=== PATIENT | male | born 1975 | race Caucasian/White ===

== ENCOUNTER 2018-03-11 00:11 | Inpatient (IN) ==
[2018-03-11] MEDS ORDERED: *HR* HYDROmorphone (PF) 1 MG/ML SYRINGE IVP ONE ×2 (00:19→01:47)
[2018-03-11] MEDS ORDERED: *HR* FentaNYL (PF) 100 MCG/2 ML VIAL IVP ONE (00:20)
[2018-03-11] MEDS ORDERED: *HR* Midazolam HCl 2 MG/2 ML VIAL IVP ONE (00:21)
--- NOTE | 2018-03-11 00:27 | Emergency Department Note ---
Disposition Clinical Impression: Dislocation of left ankle joint Qualifiers: Encounter type: initial encounter Qualified Code(s): S93.05XA - Dislocation of left ankle joint, initial encounter Closed trimalleolar fracture of left ankle Qualifiers: Encounter type: initial encounter Qualified Code(s): S82.852A - Displaced trimalleolar fracture of left lower leg, initial encounter for closed fracture Disposition: Admitted As Inpatient Condition: Good Time of Disposition: 02:00 Lower Extremity Injury HPI - General Chief Complaint: ED Extremity Injury, Lower Stated Complaint: broke left leg Time Seen by Provider: 03/11/18 00:19 Source: family Mode of arrival: wheelchair Limitations: physical limitation Nursing Notes Reviewed: Yes Vital Signs Reviewed: Yes - History of Present Illness HPI Narrative: 42-year-old male presents for evaluation of a deformity to left ankle. The patient states he was outdoors "wrestling with my older sons" when he fell and s ustained an injury to the left ankle. He states he slipped on the wet grass and felt something "pop" in his left ankle He denies any other injuries at this time. 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 Review of Systems: As Per HPI Constitutional: Denies: fever, chills, weakness, weight change Eyes: Denies: eye pain, eye discharge, vision change ENT ED: Denies: ear pain, throat pain, dental pain, hearing loss, epistaxis, congestion, dysphagia Cardiovascular: Denies: chest pain, palpitations, dyspnea on exertion, edema, syncope Respiratory: Denies: cough, dyspnea, wheezes, hemoptysis, stridor Gastrointestinal: Denies: abdominal pain, nausea, vomiting, diarrhea, constipation, hematemesis, melena, hematochezia Genitourinary: Denies: urgency, dysuria, frequency, hematuria Musculoskeletal: Reports: as per HPI, arthralgia (Left ankle injury). Denies: back pain, neck pain, myalgia Integumentary: Denies: rash, abrasion, lesions Neurological: Denies: headache, weakness, numbness, paresthesias, confusion, abn ormal gait, vertigo Psychiatric: Denies: anxiety, depression, suicidal thoughts, homicidal thoughts, auditory hallucinations, visual hallucinations Endocrine: Denies: fatigue Hematological/Lymphatic: Denies: easy bleeding, easy bruising Allergic/Immunologic: Denies: facial swelling, urticaria Past Medical History - Past Medical History Attestation: Yes The following information was validated with the patient. Source: patient, nursing notes reviewed Medical history: Reports: hyperlipidemia, hypertension Psychiatric history: Reports: no psych history - Social History Smoking Status: Never smoker Smokeless Tobacco Status: No Alcohol use: Reports: occasionally Drug use: Reports: none Physical Exam - General Limitations: physical limitation General appearance: alert, anxious, in distress - Head Head exam: atraumatic, normocephalic, normal inspection - Eye Eye exam: Present: normal appearance, PERRL, EOMI - ENT ENT exam: mucous membranes moist - Neck Neck exam: Present: normal inspection, full ROM, trachea midline - Chest Chest inspection: Present: normal inspection, symmetric chest wall rise - Expanded Lower Extremity Exam Upper leg exam: Present: normal inspection, full ROM Knee exam: Present: normal inspection, full ROM Lower leg exam: Present: ecchymosis (Over the medial malleolus of the left ankle), other (Tenting of the skin over the medial malleolus) Ankle exam: Present: dislocation (Left ankle appears dislocated rotated laterally to 90 degrees) Neurovascular/Tendon exam: Present: normal capillary refill (Capillary refill sluggish at 4-5 seconds), pallor, other (One plus dorsalis pedis pulse, left foot) Gait: unable to bear weight - Neurological Exam Neurological exam: Present: alert, oriented X3 - Psychiatric Psychiatric exam: Present: normal affect, normal mood - Skin Skin exam: Present: warm, dry, intact, normal color Course Course Narrative: Written consent was obtained and a closed reduction performed by Dr. Poe under the direct guidance of Dr. Oconnor, ED attending. Please see Dr. Poe's proc edural note for details. Status post reduction, there is 2+ dorsalis pedis pulses and brisk capillary refill. The patient has patient of the foot and toes status post reduction. Postreduction films have been ordered. Short leg posterior splint with stirrup strap applied by the ED automation technician. Ne urovascular status intact status post splinting. Postreduction films show a tri-malleolar fracture of the left ankle. I discussed this patient's case with Dr. Diego, orthopedist station installer and repairer. As the pat ient has 2+ DP pulses and good capillary refill as well as sensation of the left foot and toes, he agrees that the patient is suitable for discharge home with follow-up as an outpatient. Dr. Diego states that the patient can be seen in the office at 8:00 Tuesday morning. I discussed this plan with the patient. The patient states concerns because he lives 2 hours away. [place] bike race. He states that he has his truck is [place] as well as all of his equipment at the campground. He asks if he can follow-up with his orthopedist in [place]. I stated that this would be an appropriate option as long as he can be seen on urgent basis. He has been instructed that if any delays arise in obtaining orthopedist follow-up closer to home, that he should contact the bone and joint Center here at [place] to schedule for follow- up, as everything has already been arranged. - Reevaluation(s) Reevaluation #1: I was informed by the patient's nurse that the patient is now requesting potential admission to the hospitalist service for pain control pending orthopedic evaluation. His pain has not been controlled with the use of IV Dilaudid up to this point. Time: 03:45 Reevaluation #2: I spoke with Dr. Carver, admitting hospitalist. Dr. Carver accepts the p atient for admission to the hospitalist care with orthopedic evaluation but does request the initiation of a patient-controlled analgesic pump. At this time, a Dilaudid PRICE ANALYST has been ordered. Time: 04:09 Reevaluation #3: The patient states significant improvement in pain after the administration of a 2 mg IV push of Dilaudid. Time: 04:39 Vital Signs Temperature 97.4 F L 03/11/18 00:19 Pulse Rate 88 03/11/18 00:19 Respiratory Rate 22 03/11/18 00:19 Blood Pressure 137/72 03/11/18 00:19 O2 Sat by Pulse Oximetry 100 03/11/18 00:19 Temperature 97.4 F L 03/11/18 00:19 Pulse Rate 91 03/11/18 02:20 Respiratory Rate 20 03/11/18 02:20 Blood Pressure 129/87 03/11/18 02:20 O2 Sat by Pulse Oximetry 99 03/11/18 02:20 Oxygen Delivery Oxygen Delivery Room Air Extremity Injury, Lower - Medical Records Medical records reviewed: Yes I reviewed the patient's medical records. - Lab Data Result diagrams: 03/11/18 04:28 03/11/18 04:28 - Radiology Data Radiology results reviewed: Yes I reviewed the patient's radiology results. Ankle X-Ray 03/11/18 00:19 IMPRESSION: Acute traumatic displaced trimalleolar fracture of the left ankle as described above with posterior dislocation of the talus with respect to the distal tibia. No acute fracture of the proximal tibia or fibula. Evidence of prior ACL graft reconstruction of the left knee. D/ / Isaiah Armendariz MD / Isaiah Armendariz MD Interpreting Provider: Isaiah Armendariz MD Tibia/Fibula X-Ray 03/11/18 00:41
--- NOTE | 2018-03-11 00:43 | Emergency Department Note ---
Disposition Clinical Impression: Closed left ankle fracture Qualifiers: Encounter type: initial encounter Qualified Code(s): S82.892A - Other fracture of left lower leg, initial encounter for closed fracture Dislocation of left ankle joint Qualifiers: Encounter type: initial encounter Qualified Code(s): S93.05XA - Dislocation of left ankle joint, initial encounter Disposition: Home, Self-Care Condition: Good Forms: ED Satisfaction Letter Time of Disposition: 00:48 General Adult HPI - General Chief complaint: ED Extremity Injury, Lower Stated complaint: broke left leg Time Seen by Provider: 03/11/18 00:19 Source: family Mode of arrival: wheelchair Limitations: physical limitation - History of Present Illness Pain Scale: 10 - Related Data Allergies Allergy/AdvReac Type Severity Reaction Status Date / Time Sulfa (Sulfonamide Allergy Rash Verified 03/11/18 00:18 Antibiotics) Constitutional: Denies: fever, chills, weakness, weight change Eyes: Denies: eye pain, eye discharge, vision change ENT ED: Denies: ear pain, throat pain, dental pain, hearing loss, epistaxis, congestion, dysphagia Cardiovascular: Denies: chest pain, palpitations, dyspnea on exertion, edema, syncope Respiratory: Denies: cough, dyspnea, wheezes, hemoptysis, stridor Gastrointestinal: Denies: abdominal pain, nausea, vomiting, diarrhea, constipation, hematemesis, melena, hematochezia Genitourinary: Denies: urgency, dysuria, frequency, hematuria Musculoskeletal: Reports: as per HPI, arthralgia (Left ankle injury). Denies: back pain, neck pain, myalgia Integumentary: Denies: rash, abrasion, lesions Neurological: Denies: headache, weakness, numbness, paresthesias, confusion, abnormal gait, vertigo Psychiatric: Denies: anxiety, depression, suicidal thoughts, homicidal thoughts, auditory hallucinations, visual hallucinations Endocrine: Denies: fatigue Hematological/Lymphatic: Denies: easy bleeding, easy bruising Allergic/Immunologic: Denies: facial swelling, urticaria Past Medical History - Past Medical History Medical history: Reports: hyperlipidemia, hypertension Psychiatric history: Reports: no psych history - Social History Smoking Status: Never smoker Smokeless Tobacco Status: No Alcohol use: Reports: occasionally Drug use: Reports: none Physical Exam - General Limitations: physical limitation General appearance: alert, anxious, in distress Course Course Narrative: NOTE OPENED FOR PROCEDURE DOCUMENTATION ONLY, GIANNA GANT WAS PRIMARY PHSYICIAN ON CASE. PLEASE SEE HIS NOTE FOR ADDITIONAL DETAILS. Physical exam showed left ankle dislocation with +1 over 4 posterior dorsalis pedis pulse, cool forefoot. No other pain on proximal tib/fib. Left ankle was relocated using fentanyl and Versed. Patient tolerated the procedure well. Dorsalis pedis pulse was 2 over 4 after procedure. Cap refill less than 3 seconds on toes, sensation intact over entire left foot, motor intact left ankle. Repeat x-ray of the left ankle shows reduction with distal fibular fracture. Currently waiting official read. Imaging will followed up by yue Painting and sugar tong splint ordered. Vital Signs Temperature 97.4 F L 03/11/18 00:19 Pulse Rate 88 03/11/18 00:19 Respiratory Rate 22 03/11/18 00:19 Blood Pressure 137/72 03/11/18 00:19 O2 Sat by Pulse Oximetry 100 03/11/18 00:19 Temperature 97.4 F L 03/11/18 00:19 Pulse Rate 88 03/11/18 00:19 Respiratory Rate 22 03/11/18 00:19 Blood Pressure 137/72 03/11/18 00:19 O2 Sat by Pulse Oximetry 100 03/11/18 00:19 Oxygen Delivery Oxygen Delivery Room Air Procedures - Orthopedic Joint Reduction Joint #1 Consent Obtained: written consent Time Out Performed: Yes Side: left Joint Reduction Location: ankle ASA Classification: CLASS I-Normal, healthy patient Analgesia: other (fentanyl 100mg and versed 2mg) Technique used: traction/counter-traction Post-reduction neuro exam: intact Post-reduction vascular: intact Post Reduction X-Ray Obtained: Yes Post Reduction X-Ray Results: reduced Splint Applied: Yes Patient Tolerated Procedure: well, no complications Medical Decision Making - [facility] Narrative Medical decision making narrative: NOTE OPENED FOR PROCEDURE DOCUMENTATION ONLY, GIANNA GANT WAS PRIMARY PHSYICIAN ON CASE. PLEASE SEE HIS NOTE FOR ADDITIONAL DETAILS. Physical exam showed left ankle dislocation with +1 over 4 posterior dorsalis pedis pulse, cool forefoot. No other pain on proximal tib/fib. Left ankle was relocated using fentanyl and Versed. Patient tolerated the procedure well. Dorsalis pedis pulse was 2 over 4 after procedure. Cap refill less than 3 seconds on toes, sensation intact over entire left foot, motor intact left ankle. Repeat x-ray of the left ankle shows reduction with distal fibular fracture. Currently waiting official read. Imaging will followed up by yue Painting and sugar tong splint ordered.
--- NOTE | 2018-03-11 00:52 | Emergency Department Note ---
Disposition Clinical Impression: Closed trimalleolar fracture of left ankle Dislocation of left ankle joint Qualifiers: Encounter type: initial encounter Qualified Code(s): S93.05XA - Dislocation of left ankle joint, initial encounter Disposition: Home, Self-Care Condition: Good Instructions: Ankle Fracture (ED), Crutch Instructions (ED), Splint Care (ED) Reasons to Return/Additional Instructions: Non weight-bearing status by use of the crutches supplied to you in the Emergency Department. Maintain use of the nle wrap provided to you. Ice should be applied, 20minutes on, 20minutes off at a time. Take your medications as prescribed. Follow up with the contract negotiation specialist as we have discussed. An appointment has been scheduled for U for Tuesday at 8:00. Feel free to try to obtain orthopedic follow-up at a facility closer to your residence, however she did experience any difficulty, please contact the bone and joint office here at [place] for follow-up. You are injury will require urgent orthopedic evaluation, and ultimately surgical fixation. Return for any new or worsening symptoms including but not limited to: worsening pain, worsening swelling, numbness or tingling/discoloration of your foot or toes, fever, chills, nausea, vomiting, or any other concerns you may have about your own personal well-being. Prescriptions: Oxycodone HCl/Acetaminophen [Percocet 5-325 mg Tablet] 1 each PO Q6HR PRN 3 Days #15 tablet PRN Reason: Pain Referrals: David Diego MD [Partnered Physician] - 03/13/18 8:00 am NONE,PCP [Primary Care Provider] - Forms: ED Satisfaction Letter General Adult HPI - General Chief complaint: ED Extremity Injury, Lower Stated complaint: broke left leg Time Seen by Provider: 03/11/18 00:19 Source: family Mode of arrival: wheelchair Limitations: physical limitation Nursing Notes Reviewed: Yes Vital Signs Reviewed: Yes - History of Present Illness Pain Scale: 10 - Related Data Previous Rx's Medication Instructions Recorded Oxycodone HCl/Acetaminophen 1 each PO Q6HR PRN 3 Days #15 03/11/18 [Percocet 5-325 mg Tablet] tablet Allergies Allergy/AdvReac Type Severity Reaction Status Date / Time Sulfa (Sulfonamide Allergy Rash Verified 03/11/18 00:18 Antibiotics) Constitutional: Denies: fever, chills, weakness, weight change Eyes: Denies: eye pain, eye discharge, vision change ENT ED: Denies: ear pain, throat pain, dental pain, hearing loss, epistaxis, congestion, dysphagia Cardiovascular: Denies: chest pain, palpitations, dyspnea on exertion, edema, syncope Respiratory: Denies: cough, dyspnea, wheezes, hemoptysis, stridor Gastrointestinal: Denies: abdominal pain, nausea, vomiting, diarrhea, constipation, hematemesis, melena, hematochezia Genitourinary: Denies: urgency, dysuria, frequency, hematuria Musculoskeletal: Reports: as per HPI, arthralgia (Left ankle injury). Denies: back pain, neck pain, myalgia Integumentary: Denies: rash, abrasion, lesions Neurological: Denies: headache, weakness, numbness, paresthesias, confusion, abnormal gait, vertigo Psychiatric: Denies: anxiety, depression, suicidal thoughts, homicidal thoughts, auditory hallucinations, visual hallucinations Endocrine: Denies: fatigue Hematological/Lymphatic: Denies: easy bleeding, easy bruising Allergic/Immunologic: Denies: facial swelling, urticaria Past Medical History - Past Medical History Medical history: Reports: hyperlipidemia, hypertension Psychiatric history: Reports: no psych history - Social History Smoking Status: Never smoker Smokeless Tobacco Status: No Alcohol use: Reports: occasionally Drug use: Reports: none Physical Exam - General Limitations: physical limitation General appearance: alert, anxious, in distress Course Vital Signs Temperature 97.4 F L 03/11/18 00:19 Pulse Rate 88 03/11/18 00:19 Respiratory Rate 22 03/11/18 00:19 Blood Pressure 137/72 03/11/18 00:19 O2 Sat by Pulse Oximetry 100 03/11/18 00:19 Temperature 97.4 F L 03/11/18 00:19 Pulse Rate 91 03/11/18 02:20 Respiratory Rate 20 03/11/18 02:20 Blood Pressure 129/87 03/11/18 02:20 O2 Sat by Pulse Oximetry 99 03/11/18 02:20 Oxygen Delivery Oxygen Delivery Room Air Attestation Statement - Attestation Attestation: I examined this patient and my medical decision making was reviewed with the ABAD. I agree with the documented findings, disposition and treatment plan as described except to the extent set forth below. We independently had [id number] contact with the patient. Patient with obvious deformity to the left lower extremity. Informed consent was obtained. Patient was given 100 g of fentanyl and 2 of Versed. The ankle was reduced by the resident physician Dr. Leung with my direct supervision. I was present throughout the entirety of the procedure. Ankle was reduced with traction. Post x-ray films showed trimalleolar fracture. Ankle is unstable. Patient was placed in a posterior calf as well as associated stirrup. Post splint placement evaluation was done. Patient continues to have a strong dorsalis pedis pulse with no sensation deficit. Ortho will be contacted. Patient will undergo appropriate follow-up. After stay in the emergency department the patient did receive pain medication and feels that his pain is not controlled enough to go home. On reevaluation the patient does still have soft compartments with dorsalis pedis pulse present and sensation intact. Patient will undergo admission for pain control as well as ortho consult.
[2018-03-11] MEDS ORDERED: *HR* HYDROmorphone 2 MG/ML SYRINGE IVP ONE (03:37)
[2018-03-11] MEDS ORDERED: *HR* HYDROmorphone 20 MG/20 ML PCA IVC PRN ×2 (04:05→06:13)
[2018-03-11] MEDS ORDERED: Ondansetron 4 MG/2 ML VIAL IVP ONE (04:25)
[2018-03-11 04:45] LABS: Basophils # 0.1 K/mcL (0.0-0.2); Basophils % 0.3 %; Eosinophils % 0.1 %; Hematocrit 41.5 % (37.5-50.1); Hemoglobin 15.2 g/dL (12.9-16.9); Immature Granulocytes % 0.6 % (0-4); Lymphocytes # 1.7 K/mcL (0.6-4.6); Lymphocytes % 10.9 %; Mean Corpuscular HGB Conc 36.6 g/dL (31.6-35.5); Mean Corpuscular Hemoglobin 32.3 pg (28.0-33.3); Mean Corpuscular Volume 88.3 fL (83.0-100.0); Monocytes # 0.6 K/mcL (0.0-1.3); Monocytes % 4.1 %; Platelet Count 244 K/mcL (140-400); Red Cell Distribution Width 12.2 % (11.5-14.5)
[2018-03-11 04:53] LABS: INR 1.1; Prothrombin Time 12.1 Seconds (9.4-12.1)
[2018-03-11 04:56] LABS: Activated Partial Thrombo Time 29.1 Seconds (26.0-36.0)
[2018-03-11 05:03] LABS: BUN/Creatinine Ratio 14 (6-26); Blood Urea Nitrogen 12 mg/dL (6-20); Calcium 9.2 mg/dL (8.6-10.3); Carbon Dioxide 27 mEq/L (23-29); Chloride 101 mEq/L (98-107); Glucose 107 mg/dL (70-105); Osmolality,Calculated 284 (280-300); Potassium 3.6 mEq/L (3.5-5.1); Sodium 137 mEq/L (136-145); eGFR For Non-African Americans > 60 (> 60)
[2018-03-11] MEDS ORDERED: Ringers Solution, Lactated 1,000 ML IVC SCH ×2 (05:45→14:48)
[2018-03-11] MEDS ORDERED: Naloxone 0.4 MG/ML INJ IVP PRN ×3 (06:11→14:48)
[2018-03-11] MEDS ORDERED: Ondansetron 4 MG/2 ML VIAL IVP PRN ×2 (06:14→14:48)
[2018-03-11] MEDS ORDERED: *HR* Promethazine 25 MG/ML VIAL IVP PRN ×2 (08:15→14:48)
[2018-03-11] MEDS ORDERED: *HR* OxyCODONE Immed Rel 5 MG TABLET PO PRN ×2 (08:34→14:48)
--- NOTE | 2018-03-11 08:50 | Internal Med History&Physical ---
Date of Encounter: 03/11/18 Time of Encounter: 08:48 Internal Medicine - H&P: HPI Chief complaint: Closed trimalleolar fracture of left ankle Admitted From: Home Plans for Post Hospital Care: Home History of present illness: Mr. Temple is a 42 year old male who presents S/P fall this evening. He reports that he was playing football with his children and fell on the grass and felt something pop. On the ED was found to have a left trimalleolar ankle fracture. In the ED the fracture was reset any leg brace with stirrups was applied. He is being admitted for further consultation with podiatry with potential need for surgical intervention. Past Med Surg Social Fam HX - Past Medical History Medical history: hyperlipidemia, hypertension Psychiatric history: no psych history - Past Surgical History Additional surgical history: acl left knee - Social History Smoking Status: Never smoker Smokeless Tobacco Status: Yes Alcohol use: occasionally Drug use: none - Family History Mother Living Status: Still Living Hx Family Cardiac Disorders: Yes (htn) Internal Medicine - H&P: Meds Metoprolol [Lopressor] 100 mg PO DAILY 03/11/18 [History] Oxycodone HCl/Acetaminophen [Percocet 5-325 mg Tablet] 1 each PO Q6HR PRN 3 Days #15 tablet 03/11/18 [Rx] Simvastatin [Zocor] 10 mg PO HS 03/11/18 [History] Allergy/AdvReac Type Severity Reaction Status Date / Time Sulfa (Sulfonamide Allergy Rash Verified 03/11/18 00:18 Antibiotics) All Systems PM: A 10-system review of systems was performed and is negative for pertinent findings except as documented above in the HPI. - Cardiovascular Cardiovascular ROS IM: no chest pain, no diaphoresis, no dyspnea, no lightheadedness, no palpitations, no syncope - Respiratory Respiratory: no cough, no dyspnea, no wheezing, no excessive phlegm production - Gastrointestinal Gastrointestinal: no abdominal pain, no diarrhea, no hematemesis, no hematochezia, no melena, no nausea, no vomiting - Musculoskeletal Musculoskeletal ROS IM: as per HPI, arthralgias, limited range of motion, no numbness, no tingling - Neurological Neurological ROS: no confusion, no convulsions, no focal weakness, no numbness, no tingling, no tremor(s) - Constitutional Vitals: Temp Pulse Resp BP Pulse Ox 97.6 F 76 16 132/89 99 03/11/18 06:43 03/11/18 06:43 03/11/18 06:43 03/11/18 06:43 03/11/18 08:07 General appearance: Present: A&O X 3 Exam: . - Head Head exam: Present: atraumatic, normocephalic - Eye Eye exam: Present: PERRL - Neck Neck exam general surgery: Present: full ROM, trachea midline. Absent: lymphadenopathy - Respiratory Respiratory exam: Present: CTAB. Absent: accessory muscle use, rales, rhonchi, wheezes - Cardiovascular Cardiovascular exam: Present: RRR, +S1, +S2. Absent: diastolic murmur, gallop, rubs, systolic murmur - GI/Abdominal GI/Abdominal exam: Present: normal bowel sounds, soft, no peritoneal signs. Absent: tenderness - Extremities Exam Extremities exam: Present: normal capillary refill, tenderness, warm, radial pulses palpable and symmetrical. Absent: calf tenderness, cyanotic, full ROM, normal inspection, pedal edema - Neurological Exam Neurological exam: Absent: facial droop, speech deficit - Skin Skin exam: Present: dry, intact Internal Med - H&P Results - Labs CBC & Chem 7: 03/11/18 04:28 03/11/18 04:28 Labs: Short CBC 03/11/18 Range/Units 04:28 WBC 15.5 H (4.3-11.1) K/mcL Hgb 15.2 (12.9-16.9) g/dL Hct 41.5 (37.5-50.1) % Plt Count 244 (140-400) K/mcL Neutrophils # 13.0 H (1.6-8.9) K/mcL BMP 03/11/18 04:28 Sodium 137 Potassium 3.6 Chloride 101 Carbon Dioxide 27 BUN 12 Creatinine 0.88 Glucose 107 H Calcium 9.2 - Impressions ITS Impressions Ankle X-Ray 03/11/18 00:19 IMPRESSION: Acute traumatic displaced trimalleolar fracture of the left ankle as described above with posterior dislocation of the talus with respect to the distal tibia. No acute fracture of the proximal tibia or fibula. Evidence of prior ACL graft reconstruction of the left knee. D/ / Isaiah Armendariz MD / Isaiah Armendariz MD Interpreting Provider: Isaiah Armendariz MD Tibia/Fibula X-Ray 03/11/18 00:41 IMPRESSION: Acute traumatic displaced trimalleolar fracture of the left ankle as described above with posterior dislocation of the talus with respect to the distal tibia. No acute fracture of the proximal tibia or fibula. Evidence of prior ACL graft reconstruction of the left knee. D/ / Isaiah Armendariz MD / Iasiah Armendariz MD Interpreting Provider: Isaiah Armendariz MD Chest X-Ray 03/11/18 04:06 IMPRESSION: No acute process. D/ / Isaiah Armendariz MD / Isaiah Armendariz MD Interpreting Provider: Isaiah Armendariz MD - Assessment and plan (1) Closed trimalleolar fracture of left ankle Current Visit: Yes Status: Acute Assessment and plan: Continue with posterior splint with stirrup strap Consult podiatry Pain control with immediate release oxycodone and Toradol as needed Discontinue CRITICAL CARE TRANSPORT NURSE pump Phenergan and Zofran for nausea Heparin for DVT prophylaxis Consider DC this afternoon pending recommendations from podiatry Qualifiers: Encounter type: initial encounter Qualified Code(s): S82.852A - Displaced trimalleolar fracture of left lower leg, initial encounter for closed fracture (2) Dislocation of left ankle joint Current Visit: Yes Status: Acute Assessment and plan: As above Qualifiers: Encounter type: initial encounter Qualified Code(s): S93.05XA - Dislocation of left ankle joint, initial encounter - Time Spent With Patient Total time spent is greater than 50% in coordination of care (as documented) at patient's floor/unit and/or counseling patient: less than 15 minutes
[2018-03-11] MEDS ORDERED: Metoprolol 100 MG TABLET PO SCH (09:00)
--- NOTE | 2018-03-11 10:40 | Podiatry Consult Note ---
Date of Encounter: 03/11/18 Time of Encounter: 10:00 Assessment and Plan (1) Closed trimalleolar fracture of left ankle Current visit: Yes Status: Acute I had a thorough review with the patient regarding his injury/condition, my findings, and recommendations for treatment. We discussed the ankle fracture dislocation of the left lower extremity. We discussed his x-ray. We discussed surgery to repair the fracture sites of the left ankle. 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 he does have some tenting of the skin medially and would recommend performing the ORIF sooner rather than later. Nature of procedure, risks vs benefits, potential complications and consequences of the procedure discussed at length (including but not limited to infection, bleeding, swelling, numbness, tingling, nerve damage, loss of limb, loss of life, wound healing problems, delayed or nonhealing of bone fracture, arthritis, loss of functionality, ongoing or persistent pain, pneumonia, lack of procedure to produce desired outcome, kidney disease, liver problems, pulmonary embolism, blood clot, heart attack, reaction to implants, need for hardware removal need for further surgery etc.) no guarantees made as to the outcome of any procedure. Typical course of recovery discussed and he will be nonweightbearing for 6-8 weeks following the procedure longer and then a walking boot. All of his questions were answered and informed consent was signed. It was explained to the patient that in the future he could need surgery on the ankle for the arthritis or to remove hardware. Patient currently NPO and will be evaluated by anesthesia and brought to the operating room when okay with anesthesia. Qualifiers: Encounter type: initial encounter Qualified Code(s): S82.852A - Displaced trimalleolar fracture of left lower leg, initial encounter for closed fracture History of Present Illness HPI: Mr. Temple is a 42 year old male who got admitted from the ER with a left trimalleolar ankle fracture which the patient says happened last night when he slipped on wet grass while plying football with his kids. He said his ankle was complately dislocated to the side. He says he went to the ER and he was put in a splint. He was on a dilaudid BLOW TORCH BURNER which was discontinued this morning. His pain is now being controlled with PO pain medication. Patient says he is very uncomfortable and cannot get the pain to stop. He says he has taken sips of sprite all night. Consulted this morning for evaluation. Past Med Surg Social Fam HX - Past Medical History Medical history: hyperlipidemia, hypertension Psychiatric history: no psych history - Past Surgical History Additional surgical history: acl left knee - Social History Smoking Status: Never smoker Smokeless Tobacco Status: Yes Alcohol use: occasionally Drug use: none - Family History Mother Living Status: Still Living Hx Family Cardiac Disorders: Yes (htn) Medications and Allergies Metoprolol [Lopressor] 100 mg PO DAILY 03/11/18 [History] Oxycodone HCl/Acetaminophen [Percocet 5-325 mg Tablet] 1 each PO Q6HR PRN 3 Days #15 tablet 03/11/18 [Rx] Simvastatin [Zocor] 10 mg PO HS 03/11/18 [History] Allergy/AdvReac Type Severity Reaction Status Date / Time Sulfa (Sulfonamide Allergy Rash Verified 03/11/18 00:18 Antibiotics) All Systems Reviewed: The remainder of the systems were reviewed and are negative - Constitutional Constitutional: no fever(s) - Cardiovascular Cardiovascular: no chest pain, no dyspnea - Respiratory Respiratory: no cough, no dyspnea - Musculoskeletal Musculoskeletal: joint swelling, limited range of motion, other (left ankle pain) Physical Exam - Constitutional Vitals: Temp Pulse Resp BP Pulse Ox 97.6 F 76 16 132/89 99 03/11/18 06:43 03/11/18 06:43 03/11/18 06:43 03/11/18 06:43 03/11/18 08:07 General appearance: average body habitus, no acute distress - Respiratory Additional comments: non-labored respirations - Cardiovascular Cardiovascular exam: Present: +S1, +S2 - Ankle & Foot Exam: Well-developed and nourished male in no acute distress Capillary refill time less than 3 seconds 5 digits left foot. Left foot is warm to touch. Mild edema. No erythema. No open lesions. No skin necrosis however there is tenting of the skin medially. No fracture blisters at this time. Skin lines visible. Pain with palpation medial and lateral ankle. Did not assess range of motion secondary to injury. Patient can flex and extend digits of the left foot. Sensation intact to touch. ABD NT/ND X-ray: Displaced left trimalleolar ankle fracture Results - Labs Result Diagrams: 03/11/18 04:28 03/11/18 04:28 Labs: Abnormal lab results WBC 15.5 K/mcL (4.3-11.1) H 03/11/18 04:28 MCHC 36.6 g/dL (31.6-35.5) H 03/11/18 04:28 Neutrophils # 13.0 K/mcL (1.6-8.9) H 03/11/18 04:28 Glucose 107 mg/dL (70-105) H 03/11/18 04:28 H & H 03/11/18 Range/Units 04:28 Hgb 15.2 (12.9-16.9) g/dL Hct 41.5 (37.5-50.1) % All other labs normal. Consult Discharge Plan - Plan Referrals: NONE,PCP [Primary Care Provider] -
[2018-03-11] MEDS ORDERED: *HR* Midazolam HCl 2 MG/2 ML VIAL ONE (11:23)
[2018-03-11] MEDS ORDERED: *HR* FentaNYL (PF) 100 MCG/2 ML VIAL ONE (11:23)
[2018-03-11] MEDS ORDERED: *HR* Propofol 200 MG/20 ML VIAL IVP ONE (11:24)
[2018-03-11] MEDS ORDERED: Lidocaine -MPF 2% 2 ML VIAL ONE (11:24)
[2018-03-11] MEDS ORDERED: Dexamethasone 4 MG/ML VIAL ONE (11:24)
[2018-03-11] MEDS ORDERED: Ondansetron 4 MG/2 ML VIAL ONE (11:24)
[2018-03-11] MEDS ORDERED: Bupivacaine/EPI 1:200k 0.25%PF 30 ML VIAL ONE (11:44)
[2018-03-11] MEDS ORDERED: Ketorolac 30 MG/ML VIAL IVP SCH (12:00)
--- NOTE | 2018-03-11 12:16 | Anesthesia Evaluation PreOp ---
Date of Encounter: 03/11/18 Time of Encounter: 12:14 - Past History Planned Operation: ORIF L-trimalleolar Fx Cardiac History: HTN, Hyperlipidemia Pulmonary History: Denies Any Significant HX WEIGH BOSS History: Denies Any Significant HX Other Medical History: Denies Any Significant HX Anesthesia History: No Prior Anesthetic Complications, Past Anesthesia (L-ACL) Alcohol Use: occasionally Drug use: none Medications and Allergies Metoprolol [Lopressor] 100 mg PO DAILY 03/11/18 [History] Oxycodone HCl/Acetaminophen [Percocet 5-325 mg Tablet] 1 each PO Q6HR PRN 3 Days #15 tablet 03/11/18 [Rx] Simvastatin [Zocor] 10 mg PO HS 03/11/18 [History] Allergy/AdvReac Type Severity Reaction Status Date / Time Sulfa (Sulfonamide Allergy Rash Verified 03/11/18 00:18 Antibiotics) - Meds/Allergy Pre-op Review Medications Reviewed: Yes Allergies Reviewed: Yes Beta Blockers on Current Med List: No Anesthesia Results - Labs 03/11/18 04:28 03/11/18 04:28 Laboratory Results Laboratory Tests 03/11/18 03/11/18 04:28 04:28 PT 12.1 INR 1.1 APTT 29.1 Est GFR (Non-Af Amer) > 60 Impressions Ankle X-Ray 03/11/18 00:19 IMPRESSION: Acute traumatic displaced trimalleolar fracture of the left ankle as described above with posterior dislocation of the talus with respect to the distal tibia. No acute fracture of the proximal tibia or fibula. Evidence of prior ACL graft reconstruction of the left knee. D/ / Isaiah Armendariz MD / Isaiah Armendariz MD Interpreting Provider: Isaiah Armendariz MD Tibia/Fibula X-Ray 03/11/18 00:41 IMPRESSION: Acute traumatic displaced trimalleolar fracture of the left ankle as described above with posterior dislocation of the talus with respect to the distal tibia. No acute fracture of the proximal tibia or fibula. Evidence of prior ACL graft reconstruction of the left knee. D/ / Isaiah Armendariz MD / Isaiah Armendariz MD Interpreting Provider: Isaiah Armendariz MD Chest X-Ray 03/11/18 04:06 IMPRESSION: No acute process. D/ / Isaiah Armendariz MD / Isaiah Armendariz MD Interpreting Provider: Isaiah Armendariz MD Anesthesia Exam Vital Signs Temp Pulse Resp BP Pulse Ox 03/11/18 11:00 98.3 F 80 16 146/95 99 03/11/18 10:52 97.7 F 76 17 139/77 95 03/11/18 08:07 99 03/11/18 06:43 97.6 F 76 16 132/89 99 03/11/18 05:52 97.8 F 85 18 117/82 95 03/11/18 02:20 91 20 129/87 99 03/11/18 01:07 79 18 131/81 99 03/11/18 00:19 97.4 F L 88 22 137/72 100 Intake and Output 03/10/18 03/11/18 03/11/18 23:59 07:59 15:59 Other: Weight 79.4 kg Patient Weight 03/11/18 23:59 Weight 79.4 kg Height: 5'8" Weight: 175# BMI = 27 NPO (# of Hours): MNOc Pain Scale Used: Numeric (1 - 10) - HEENT Pupil (Motor): Pupils equal, EOMI Mallampati: II Teeth: Normal Oral Opening: Greater than 3 - WEIGH BOSS LOC: Oriented WEIGH BOSS Motor: Normal RUE, Normal LUE, Normal RLE, Normal LLE, Normal Face WEIGH BOSS Sensory: Normal: RUE, LUE, RLE, LLE, Face - Cardiac Rhythm: Regular Murmur: None - Pulmonary Breath Sounds: bilateral Clear Respiratory Effort: Symmetrical Anesthesia Assess/Plan ASA Score: 2 Modified Derik Scale for Level of Consciousness: Cooperative, oriented, and tranquil Anesthetic Plan: General, Regional Monitoring Plan: Standard Monitors Recovery Plan: PACU Anes Supervising Prov Stmt: Pt seen/evaluated, R&B Discussed, questions answered and consent obtained. Alex Menchaca MD
[2018-03-11] MEDS ORDERED: Tetracaine/PF 20 MG/2 ML AMPUL ONE (12:26)
[2018-03-11] MEDS ORDERED: ROPIVACAINE HCL/PF 0.5% 30 ML VIAL ONE (12:26)
[2018-03-11] MEDS ORDERED: Bupivacaine/Clonidine Syringe 1 EACH SYRINGE ONE (12:26)
[2018-03-11] MEDS ORDERED: Scopolamine Patch 1.5 MG PATCH.TD72 ONE (12:40)
[2018-03-11] MEDS ORDERED: Famotidine 20 MG/2 ML VIAL ONE (12:41)
[2018-03-11] MEDS ORDERED: Acetaminophen IV 1,000 MG/100 ML INFUS..BTL ONE (12:41)
--- NOTE | 2018-03-11 12:46 | Anesthesia Procedures ---
Date of Encounter: 03/11/18 Time of Encounter: 12:44 Procedures: Anesthesia - Nerve Block Procedure Date: 03/11/18 Time: 12:45 Surgical Procedure: Left Ankle ORIF Checklist: Correct Patient Identifier, Correct procedure, History checked Correct side: Left Blood Thinner: No Monitor Applied: EKG, BP, Pulse Oximetry Supplemental Oxygen via Nasal Cannula (L/min): 2 Sedation: Versed (mg): 2 Sedation: Fentanyl (mcg): 50 Indication: Post Op Analgesia (per dr. Saundesr) Pre-op Neuro Deficits: No Block Type: Popliteal, Other (Saphenous Field Block) Catheter placed: No Sterile Technique: Yes Ultrasound used: Yes Anatomy identified: Yes Visual spread of Local: Yes Neuro Stimulation: No Blood on Needle Aspiration: No Smooth Injection of Local: Yes Pain with Injection of Local: No Prep: Chlorhexadine Needle: 21 x 100 mm Stimuplex Local: 0.25% Bupivicaine w/Clonidine 20 mcg/cc (20cc with 4mg decadron for Saphenous), Tetracaine, Ropivacaine (30cc 0.5% with 8mg decadron and 20mg tetracaine for pop) Volume (cc): 30, 20 Number of Attempts: 1 Complications: None/effective block Vitals: Vital Signs/O2 Sat/Glucose, Most Recent Temp Pulse Resp BP Pulse Ox 98.3 F 82 16 138/88 96 03/11/18 11:00 03/11/18 12:33 03/11/18 12:33 03/11/18 12:33 03/11/18 12:33 Comments: [facility]
--- NOTE | 2018-03-11 14:10 | Operative Note ---
Date of procedure: 03/11/18 Pre-op diagnosis: left trimalleolar ankle fracture Post-op diagnosis: same Procedure: ORIF left trimalleolar ankle fracture ORIF syndesmosis Implants: Carmel plate with screws, 3.0mm partially threaded cannulated screws x 2 Complications: none Anesthesia: GETA, other (popliteal block by anesthesia) Co-Surgeon: Ryan Saunders Was there an railways assistant present: No Estimated blood loss (cc): 25 Tourniquet Time (Minutes): 44 Specimen: none Condition: stable Disposition: PACU Procedure in Detail: Indications: 42-year-old male sustaining trimalleolar left ankle fracture di slocation yesterday admitted overnight in the emergency room for pain control. Patient was found to have tenting of the medial skin without necrosis upon examination and was brought to the operating room for ORIF of the left trimalleolar ankle fracture after having the nature of the procedure, risks versus benefits potential complications consequences of surgery and his condition discussed at length. It was explained and he understood that he will have arthritis of his ankle due to the nature of his injury. All his questions have been answered and informed consent was signed. Patient was given a popliteal block by anesthesia brought to the operating room placed on operating room table in the supine position. The left foot was scrubbed prepped and draped in the usual sterile fashion. A thigh tourniquet had been applied and was inflated to 300 mmHg and the following procedure began. ORIF of left trimalleolar ankle fracture. Attention was directed to the lateral aspect of the patient's left ankle were #15 blade was used to make a skin incision approximately 7 cm in length. Skin incision was deepened through blunt dissection all traversing veins were divided and ligated using the Bovie or Vicryl ties as deemed appropriate. Care was taken to avoid neurovascular tendon structures. The periosteal layer was incised and freed from the fibula exposing the fracture zone of the lateral malleolus which was obliquely oriented. Hematoma was evacuated from the fracture zone. The ankle was held in a reduced position with the talus under the tibia and well aligned and the ankle mortise. C-arm was utilized to confirm reduction of the talus and the ankle mortise and that the fibula was out to length. Reduction clamps were used to stabilize the fracture zone and a 3.5 jose cortical lag screw was thrown using standard technique. Excellent compression was noted across the fracture zone clinically. Using standard technique a Jose locking plate was applied using 3.5 mm lo cking and nonlocking screws to the lateral aspect of the fibula bridging the fracture zone. The fibula was out to length. The site was flushed with saline irrigation. Stability of the fracture zone was assessed and the fracture zone had good apposition and the ankle was noted to be in good position and alignment on the C-arm. Attention was then directed medially where a #15 blade was used to make a skin incision over the medial malleolus. Skin incision was deepened through blunt dissection care was taken to avoid neurovascular tendinous structures. Hematoma was evacuated from the fracture zone and periosteum removed from the fracture zone. The medial malleolar fracture fragment was then reduced with a reduction clamp and pinned temporarily. C-arm was utilized to confirm position and alignment of the k-wires traversing the fracture zone. Fracture was noted to be reduced and two 3.0mm partially threaded cannulated jose screws were thrown across the fracture zone. No increase in medial clear space was noted and good tib-fib overlap was present. Reduction of the fracture zone was noted. Attention was then directed laterally where the cotton hook test was performed and the syndesmosis was felt to be unstable. The syndesmosis was held in a reduced position and a Jose 3.5mm non-locking screw was thrown through the plate to stabilize the syndesmosis. C-arm was utilitzed to confirm reduction and no increase in the medial clear space and good tib-fib overlap. The posterior malleolar fragment was small and the decision was made not to fixate the fragment. C-arm was utilized to confirm position and alignment of the fracture zones. There was no increased and medial clear space there was good tib-fib overlap and the talus was aligned in the ankle mortise and the fibula was out to length. Periosteal layers were closed with 2-0 Vicryl subcutaneous tissues were closed with 2-0 Vicryl and the skin was reapproximated with susanne laterally. Postoperative bandaging included Xeroform, 4 x 4 gauze, Kerlix and an adequately padded posterior splint. The patient tolerated the anesthesia and the procedure well and was escorted to the recovery room with vital signs stable and vascular status intact to the left foot noted by instant capillary refill time to all digits of the left foot. Cryocuff applied. Elevation. Strict instructions given for non-weightbearing to the left lower extremity. Patient will return to the floor where he will continue 2 doses of Ancef, pain control and monitoring with potential discharge tomorrow morning. Follow up in 1 week.
--- NOTE | 2018-03-11 16:09 | Anesthesia Evaluation Post Op ---
Date of Encounter: 03/11/18 Time of Encounter: 14:40 - Vital Signs Vital Signs: Vital Signs/O2 Sat/Glucose, Most Current Temp Pulse Resp BP Pulse Ox 03/11/18 14:35 99.7 F H 87 16 115/89 96 03/11/18 14:25 88 16 126/82 96 03/11/18 14:15 91 16 125/84 92 03/11/18 14:05 99.4 F 98 16 136/97 100 03/11/18 12:33 82 16 138/88 96 - Lungs Lungs: Clear Ascult./Percussion - Airway Airway: Non-obstructed - Cardiovascular Regular Rate - Mental Status Mental Status: Alert & Oriented, Answers Appropriately - Pain Pain Scale: 2 Pain Scale used: Numeric (1 - 10) - Nausea Vomiting Nausea Vomiting: Not Present - Hydration Hydration: Tolerates oral liquids - Discharge PostOp Status: Transfer Patient to floor Anes Supervising Prov Stmt: Pt seen/evaluated, VSS And has met criteria for discharge to floor. - MD Bernarda
[2018-03-11] MEDS ORDERED: *HR* Heparin 5,000 UNIT/ML VIAL SQ SCH (18:00)
[2018-03-11] MEDS: Ketorolac 30 MG/ML VIAL IVP SCH (18:02)
[2018-03-11] MEDS: *HR* Heparin 5,000 UNIT/ML VIAL SQ SCH (18:02)
[2018-03-12] MEDS: Ketorolac 30 MG/ML VIAL IVP SCH ×3 (00:21→12:36)
[2018-03-12] MEDS: *HR* Heparin 5,000 UNIT/ML VIAL SQ SCH (05:35)
[2018-03-12 08:08] LABS: Basophils % 0.1 %; Hematocrit 36.5 % (37.5-50.1); Immature Granulocytes % 0.6 % (0-4); Lymphocytes # 1.2 K/mcL (0.6-4.6); Lymphocytes % 8.7 %; Mean Corpuscular HGB Conc 35.9 g/dL (31.6-35.5); Mean Corpuscular Hemoglobin 32.4 pg (28.0-33.3); Mean Corpuscular Volume 90.3 fL (83.0-100.0); Mean Platelet Volume 10.4 fL (9.4-12.4); Monocytes # 1.1 K/mcL (0.0-1.3); Monocytes % 7.9 %; Neutrophils # 11.3 K/mcL (1.6-8.9); Platelet Count 214 K/mcL (140-400); Red Blood Count 4.04 M/mcL (4.19-5.50); Red Cell Distribution Width 12.4 % (11.5-14.5); Segmented Neutrophils % 82.7 %
[2018-03-12 08:16] LABS: Hemoglobin 13.1 g/dL (12.9-16.9)
[2018-03-12 08:42] LABS: BUN/Creatinine Ratio 20 (6-26); Blood Urea Nitrogen 17 mg/dL (6-20); Carbon Dioxide 27 mEq/L (23-29); Chloride 102 mEq/L (98-107); Glucose 118 mg/dL (70-105); Osmolality,Calculated 285 (280-300); Potassium 4.2 mEq/L (3.5-5.1); Sodium 136 mEq/L (136-145); eGFR For Non-African Americans > 60 (> 60)
[2018-03-12] MEDS ORDERED: Metoprolol 100 MG TABLET PO SCH (09:00)
--- NOTE | 2018-03-12 11:49 | Podiatry Progress Note ---
Date of Encounter: 03/12/18 Time of Encounter: 10:50 - Assessment and Plan (1) Closed trimalleolar fracture of left ankle Current Visit: Yes Status: Acute I had a thorough review with the patient regarding his injury/condition, my findings, and recommendations for treatment. We discussed the ankle fracture dislocation of the left lower extremity. We discussed his x-ray. We discussed surgery to repair the fracture sites of the left ankle. 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 he does have some tenting of the skin medially and would recommend performing the ORIF sooner rather than later. Nature of procedure, risks vs benefits, potential complications and consequences of the procedure discussed at length (including but not limited to infection, bleeding, swelling, numbness, tingling, nerve damage, loss of limb, loss of life, wound healing problems, delayed or nonhealing of bone fracture, arthritis, loss of functionality, ongoing or persistent pain, pneumonia, lack of procedure to produce desired outcome, kidney disease, liver problems, pulmonary embolism, blood clot, heart attack, reaction to implants, need for hardware removal need for further surgery etc.) no guarantees made as to the outcome of any procedure. Typical course of recovery discussed and he will be nonweightbearing for 6-8 weeks following the procedure longer and then a walking boot. All of his questions were answered and informed consent was signed. It was explained to the patient that in the future he could need surgery on the ankle for the arthritis or to remove hardware. Patient currently NPO and will be evaluated by anesthesia and brought to the operating room when okay with anesthesia. Qualifiers: Encounter type: initial encounter Qualified Code(s): S82.852A - Displaced trimalleolar fracture of left lower leg, initial encounter for closed fracture Subjective Interval history: S: s/p left ankle ORIF. pain controlled. says he has been using a walker to get the bathroom. denies any overnight events. Does not feel like he had a fever, chills, vomiting. some nausea, no shortness of breath, no calf pain or chest pain. O: well developed and nourished male in no acute distress can flex and extend digits of the left foot foot. CFT < 3 sec x 5 digits left foot. posterior splint clean, dry and intact. No strikethrough. A: 1 day s/p left ankle fracture ORIF. P: discussed surgical procedure and course of recovery. remain non-wb to the left lower extremity using crutches or other assistive device. Rx discussed and in chart for Percocet for pain, Zofran for nausea and Xarel to for blood clot prevention. ice and elevation. discharge to home after physical therapy evaluates and gait trains with follow up in 1 week Objective - Vital Signs Vital Signs: Vital Signs Temp Pulse Resp BP Pulse Ox 03/12/18 09:30 86 139/85 03/12/18 07:45 97.8 F 62 17 104/68 95 03/12/18 03:11 98.3 F 67 16 108/70 95 03/12/18 00:54 98.2 F 68 14 111/72 96 03/11/18 20:30 94 03/11/18 19:17 98.3 F 84 18 123/80 94 03/11/18 18:10 98.3 F 67 16 136/77 97 03/11/18 16:07 97.7 F 72 19 117/73 97 03/11/18 15:56 98.2 F 92 14 122/82 92 03/11/18 15:24 98.3 F 97 16 132/88 97 03/11/18 14:56 98.5 F 82 14 126/86 95 03/11/18 14:35 99.7 F H 87 16 115/89 96 03/11/18 14:25 88 16 126/82 96 03/11/18 14:15 91 16 125/84 92 03/11/18 14:05 99.4 F 98 16 136/97 100 03/11/18 12:33 82 16 138/88 96 Intake and Output 03/11/18 03/12/18 03/12/18 23:59 07:59 15:59 Intake Total 340 / 340 100 / 100 240 / 240 Output Total 1050 / 1050 300 / 300 Balance -710 / -710 -200 / -200 240 / 240 Intake: IV Fluids 100 / 100 100 / 100 Ancef 2,000 MG In 0.9 % Sodium 100 / 100 100 / 100 Chloride 100 ML @ 200 mls/hr IVPB Q8H [facility] Rx#:[id number] Oral 240 / 240 240 / 240 Output: Urine 1050 / 1050 300 / 300 Other: Meal Dinner Breakfast Percent of Meal Consumed 100% 60% # Voids 1 Weight 79.6 kg Patient Weight 03/12/18 23:59 Weight 79.6 kg - Lab Result Diagrams: 03/12/18 07:12 03/12/18 07:12 Labs: Abnormal lab results WBC 13.7 K/mcL (4.3-11.1) H 03/12/18 07:12 RBC 4.04 M/mcL (4.19-5.50) L 03/12/18 07:12 Hct 36.5 % (37.5-50.1) L 03/12/18 07:12 MCHC 35.9 g/dL (31.6-35.5) H 03/12/18 07:12 Neutrophils # 11.3 K/mcL (1.6-8.9) H 03/12/18 07:12 Glucose 118 mg/dL (70-105) H 03/12/18 07:12 Consult Discharge Plan - Plan Referrals: NONE,PCP [Primary Care Provider] -
--- NOTE | 2018-03-12 11:54 | Discharge Summary ---
- NOTES TO OUTPATIENT PROVIDER Notes to Outpatient Provider: Follow-up with Dr. Larson in 1 week Orders not resulted at time of discharge: Pending orders 03/11/18 XR ankle complete min 3V LT [XR] Routine 03/11/18 04:06 ECG 12 lead ECG [ECG] Stat 03/11/18 12:19 US anesthesia pain block [US] Routine 03/13/18 04:00 Basic Metabolic Panel AM 0400 Complete Blood Count [HEME] AM 0400 03/14/18 04:00 Basic Metabolic Panel AM 0400 Complete Blood Count [HEME] AM 0400 Date of Encounter: 03/12/18 Time of Encounter: 11:51 - Discharge Diagnosis (1) Closed trimalleolar fracture of left ankle Priority: Primary Status: Acute Qualifiers: Encounter type: initial encounter Qualified Code(s): S82.852A - Displaced trimalleolar fracture of left lower leg, initial encounter for closed fracture (2) Dislocation of left ankle joint Priority: Secondary Status: Acute Qualifiers: Encounter type: initial encounter Qualified Code(s): S93.05XA - Dislocation of left ankle joint, initial encounter Hospital course: Mr. Temple is a 42 year old male who prevented S/P fall resulting in closed trimalleolar fracture of left ankle. Patient required ORIF of left ankle. POD 1, uneventful course of recovery. Dr. Larson orthopedic surgeon and myself discussed discharge instructions and follow-up with patient. On day of discharge patient can flex and extend digits of left foot, posterior splint clean dry and intact. PT/OT to evaluate and train patient regarding gait with crutches. He is to be non-WB to the LLE. He will follow-up with Dr. Larson in one week. He is being discharged with a prescription for Percocet, Zofran and Xarelto. Discharge discussed with: patient, family, nurse, advanced manufacturing consultant - Time Spent with Patient Total time spent providing and/or coordinating discharge services: Less than 30 minutes - Discharge Medications Home Medications: Metoprolol [Lopressor] 100 mg PO DAILY 03/11/18 [History] Rosuvastatin Calcium 10 mg PO DAILY 03/11/18 [History] Zolmitriptan [Zomig] 5 - 10 mg PO DAILY PRN 03/11/18 [History] Allergies/Adverse Reactions: Allergy/AdvReac Type Severity Reaction Status Date / Time Sulfa (Sulfonamide Allergy Rash Verified 03/11/18 00:18 Antibiotics) Date of admission: 03/11/18 17:24 Primary care physician: PCP NONE Consults: 03/11/18 04:08 Consult to Orthopedic Surgery [CONS] Stat Consulting Provider: [facility] Reason for Consult: Left trimalleolar fracture Time Notified: 04:08 Call Completed: Yes 03/11/18 08:54 Consult to Podiatry [CONS] Routine Consulting Provider: [facility] Reason for Consult: Acute traumatic trimalleolar fracture of left ankle and displaced distal fibular diaphyseal fracture with apex posterior angulation as well as posterior dislocation of talus Time Notified: 08:55 Call Completed: Yes 03/11/18 13:56 Consult to Physical Therapy [CONS] Routine Comment: Evaluate, develop and implement POC Reason for Consult: s/p left ankle ORIF, gait training for non-wb Does patient have active BEDREST order?: No Is patient medically & hemodynamically stable?: Yes Discharging clinician: Serafin Zendejas Anticipated date of discharge: 03/12/18 - Constitutional Vitals: Temp Pulse Resp BP Pulse Ox 97.8 F 86 17 139/85 95 03/12/18 07:45 03/12/18 09:30 03/12/18 07:45 03/12/18 09:30 03/12/18 07:45 General appearance: Present: A&O X 3 Exam: PHYSICAL EXAMINATION: GENERAL: The patient is a well-developed, well-nourished male in no apparent distress. He is alert and oriented x3. LUNGS: Clear to auscultation. HEART: Regular rate and rhythm without murmur. ABDOMEN: Soft, nontender, and nondistended. Positive bowel sounds. No hepatosplenomegaly was noted. EXTREMITIES: Without any cyanosis, clubbing, rash, lesions or edema. LLE: Can flex and extend digits of left foot, Refill less than 3 seconds all 5 digits of left foot, posterior splint CDI - Patient Status Disposition: Home, Self-Care Condition: Good Functional capacity at discharge: uses cane/walker Overall status at discharge: patient is progressing back to baseline - Discharge Instructions Follow Up With: NONE,PCP [Primary Care Provider] - - Diet and Activity Activity: increase activity as tolerated, resume usual activities as tolerated Diet: advance to your usual diet
[2018-03-12 12:07] VITALS: BP 123/73
--- NOTE | 2018-03-14 17:09 | Electrocardiograph Report ---
[address] [address] Test Date: 2018-03-11 Pat Name: John Temple Department: EXAM19 Room: [facility] Gender: M [employer]: : 1975 Requested By: Jorge A Patterson Order Number: [id number] Reading MD: Saturnino Burden Measurements Intervals [place] Rate: 74 P: 52 SD: 169 QRS: 6 QRSD: 103 T: 34 QT: 401 QTc: 445 Interpretive Statements Sinus rhythm Probable left atrial enlargement Electronically Signed On 03-14-2018 17:07:37 EDT by Saturnino Burden
== END 2018-03-12 13:53 | disposition home or self-care (01) | DRG 494 ==
LOC: 3NENU 00:11 → EMEROOARM 00:11 → 3NENU 05:15
PROVIDERS: ADMIT Family Medicine; ATTEND Family Medicine